=== PATIENT | male | born 1955 | race Caucasian/White ===

== ENCOUNTER 2021-02-03 14:47 | Inpatient (IN) ==
[2021-02-03] MEDS ORDERED: MOM Conc 10 ML UD.LIQ PO PRN (17:55)
[2021-02-03] MEDS ORDERED: Naloxone 0.4 MG/ML INJ IVP PRN (17:55)
[2021-02-03] MEDS ORDERED: Ondansetron ODT 4 MG TAB.RAPDIS SL PRN (17:55)
[2021-02-03] MEDS ORDERED: Acetaminophen 325 MG TABLET PO PRN (17:55)
[2021-02-03] MEDS ORDERED: Mag Hydrox/Al Hydrox/Simeth 30 ML UDC PO PRN (17:55)
[2021-02-03] MEDS ORDERED: *HR* LORazepam 2 MG/ML VIAL IVP PRN ×3 (18:02)
[2021-02-03] MEDS ORDERED: Perflutren Lipid Microsphere 1.3 ML in 0.9 % Sodium Chloride 8.7 ML IVP PRN (18:04)
[2021-02-03] MEDS ORDERED: Magnesium Sulfate 1 GM/102 ML PIGGYBACK IVPB ONE (18:04)
[2021-02-03] MEDS ORDERED: *HR* Heparin 5,000 UNIT/ML VIAL IVP ONE (18:48)
[2021-02-03] MEDS ORDERED: *HR* Heparin 5,000 UNIT/ML VIAL IVP PRN ×2 (18:48)
[2021-02-03 19:29] LABS: Hematocrit 38.2 % (37.5-50.1); Hemoglobin 12.9 g/dL (12.9-16.9); Mean Corpuscular HGB Conc 33.8 g/dL (31.6-35.5); Mean Corpuscular Hemoglobin 35.1 pg (28.0-33.3); Mean Corpuscular Volume 104.1 fL (83.0-100.0); Mean Platelet Volume 9.4 fL (9.4-12.4); Platelet Count 157 K/mcL (140-400); Red Blood Count 3.67 M/mcL (4.19-5.50); White Blood Count 5.7 K/mcL (4.3-11.1)
[2021-02-03 19:46] LABS: INR 1.1; Prothrombin Time 12.6 Seconds (9.4-12.1)
[2021-02-03 19:49] LABS: Heparin anti-factor XA UFH < 0.04 IU/mL (0.30-0.70)
[2021-02-03] MEDS: Heparin 25,000UNIT/250ML 1/2NS 25,000 UNIT/250 ML IV.SOLN IVC SCH (20:17)
[2021-02-04 01:23] LABS: Hematocrit 33.4 % (37.5-50.1); Hemoglobin 11.2 g/dL (12.9-16.9); Mean Corpuscular HGB Conc 33.5 g/dL (31.6-35.5); Mean Corpuscular Hemoglobin 35.2 pg (28.0-33.3); Mean Platelet Volume 9.7 fL (9.4-12.4); Platelet Count 143 K/mcL (140-400); Red Blood Count 3.18 M/mcL (4.19-5.50); White Blood Count 5.4 K/mcL (4.3-11.1)
[2021-02-04 01:51] LABS: BUN/Creatinine Ratio 7 (6-26); Blood Urea Nitrogen 6 mg/dL (8-23); Calcium 7.9 mg/dL (8.6-10.3); Carbon Dioxide 30 mEq/L (23-29); Chloride 105 mEq/L (98-107); Chol/HDL Ratio 3.5 (0-4.9); Cholesterol 117 mg/dL (< 200); Glucose 118 mg/dL (70-105); HDL Cholesterol 33 mg/dL (40-59); LDL Cholesterol,Calculated 71 mg/dL (< 100); Magnesium 1.7 mg/dL (1.6-2.6); Osmolality,Calculated 293 (280-300); Sodium 142 mEq/L (136-145); Triglycerides 66 mg/dL (< 150); eGFR For African Americans > 60 (> 60); eGFR For Non-African Americans > 60 (> 60)
[2021-02-04] MEDS: Heparin 25,000UNIT/250ML 1/2NS 25,000 UNIT/250 ML IV.SOLN IVC SCH (04:39)
[2021-02-04] MEDS ORDERED: *HR* Enoxaparin 40 MG/0.4 ML SYRINGE SQ SCH (07:00)
[2021-02-04] MEDS ORDERED: Magnesium Sulfate 1 GM/102 ML PIGGYBACK IVPB ONE (08:57)
[2021-02-04] MEDS: Folic Acid 1 MG TABLET PO SCH (09:55)
[2021-02-04] MEDS: Thiamine (B-1) 100 MG TABLET PO SCH (09:55)
[2021-02-04] MEDS: Furosemide 20 MG/2 ML VIAL IVP SCH ×2 (09:56→16:08)
[2021-02-04] MEDS: Apixaban 5 MG TABLET PO SCH ×2 (14:16→20:26)
[2021-02-04] MEDS: Thiamine (B-1) 100 MG, Folic Acid 1 MG, MVI, adult with vitamin K 10 ML in 0.9 % Sodi... IVPB SCH (16:11)
[2021-02-05 03:27] LABS: Hematocrit 32.9 % (37.5-50.1); Hemoglobin 10.5 g/dL (12.9-16.9); Mean Corpuscular HGB Conc 31.9 g/dL (31.6-35.5); Mean Corpuscular Hemoglobin 34.2 pg (28.0-33.3); Mean Corpuscular Volume 107.2 fL (83.0-100.0); Platelet Count 128 K/mcL (140-400); Red Blood Count 3.07 M/mcL (4.19-5.50); White Blood Count 4.3 K/mcL (4.3-11.1)
[2021-02-05 03:52] LABS: BUN/Creatinine Ratio 12 (6-26); Blood Urea Nitrogen 9 mg/dL (8-23); Carbon Dioxide 28 mEq/L (23-29); Chloride 103 mEq/L (98-107); Glucose 113 mg/dL (70-105); Osmolality,Calculated 289 (280-300); Sodium 140 mEq/L (136-145); eGFR For African Americans > 60 (> 60); eGFR For Non-African Americans > 60 (> 60)
[2021-02-05] MEDS: Furosemide 40 MG/4 ML VIAL IVP SCH (09:14)
[2021-02-05] MEDS: Folic Acid 1 MG TABLET PO SCH (09:14)
[2021-02-05] MEDS: Apixaban 5 MG TABLET PO SCH ×2 (09:14→20:40)
[2021-02-05] MEDS: Thiamine (B-1) 100 MG TABLET PO SCH (09:14)
[2021-02-05] MEDS: Furosemide 20 MG/2 ML VIAL IVP SCH (10:23)
[2021-02-05] MEDS: Thiamine (B-1) 100 MG, Folic Acid 1 MG, MVI, adult with vitamin K 10 ML in 0.9 % Sodi... IVPB SCH (16:44)
[2021-02-06 02:24] LABS: Hematocrit 32.8 % (37.5-50.1); Mean Corpuscular HGB Conc 33.5 g/dL (31.6-35.5); Mean Corpuscular Hemoglobin 35.1 pg (28.0-33.3); Mean Corpuscular Volume 104.8 fL (83.0-100.0); Mean Platelet Volume 10.2 fL (9.4-12.4); Platelet Count 139 K/mcL (140-400); Red Blood Count 3.13 M/mcL (4.19-5.50); White Blood Count 4.9 K/mcL (4.3-11.1)
[2021-02-06 02:37] LABS: BUN/Creatinine Ratio 13 (6-26); Blood Urea Nitrogen 11 mg/dL (8-23); Calcium 8.3 mg/dL (8.6-10.3); Carbon Dioxide 29 mEq/L (23-29); Chloride 101 mEq/L (98-107); Glucose 109 mg/dL (70-105); Osmolality,Calculated 290 (280-300); Potassium 3.1 mEq/L (3.5-5.1); Sodium 140 mEq/L (136-145); eGFR For African Americans > 60 (> 60); eGFR For Non-African Americans > 60 (> 60)
[2021-02-06 04:24] VITALS: O2SAT 92
[2021-02-06 07:05] VITALS: BP 154/97; PULSE 104; TEMP 97.9
[2021-02-06] MEDS ORDERED: Potassium Chloride 20 MEQ, Lidocaine 1% 2 ML in 0.9 % Sodium Chloride 250 ML IVPB ONE (08:24)
[2021-02-06] MEDS: Apixaban 5 MG TABLET PO SCH (08:51)
[2021-02-06] MEDS: Folic Acid 1 MG TABLET PO SCH (08:51)
[2021-02-06] MEDS: Thiamine (B-1) 100 MG TABLET PO SCH (08:51)
[2021-02-06] MEDS: Furosemide 40 MG/4 ML VIAL IVP SCH ×2 (08:52→09:08)
== END 2021-02-06 11:03 | disposition home or self-care (01) | DRG 292 ==
LOC: 3ANU → SUATTDRO 16:52 → OBSVTOIN 16:52
PROVIDERS: ADMIT Pharmacist; ATTEND Internal Medicine